=== PATIENT | female | born 1995 | race Caucasian/White ===

== ENCOUNTER 2018-04-22 17:10 | Observation (INO) | END 2018-04-24 13:00 | disposition home or self-care (01) ==

== ENCOUNTER 2018-10-25 08:26 | Day surgery (SDC) | payer BC ==
[2018-10-25] VITALS (11 sets, daily range): BP systolic 112–126; BP diastolic 49–72; PULSE 64–90; RESP 16–18; Ht 167.6 cm; Wt 102.9 kg
[~2018-10-25] VITALS: Ht 167.6 cm; Wt 102.9 kg
--- NOTE | 2018-10-25 08:03 | HPN ---
Date/Time of Note Date/Time of Note DATE: 10/25/18 TIME: 08:03 Interval H&P Admission Note Pt. seen H&P reviewed: No system changes RAYMOND GAY MD Oct 25, 2018 08:03
[~2018-10-25 08:26] MED LIST: ASPI-817 PO; CEFAZOLIN 1 GM INJ ONE; GLYCOPYRROLATE 0.4 MG INJ ONE; LIDOCAINE 2% (SDV) 5 ML INJ ONE; NEOSTIGMINE 3 MG/3 ML SYRINGE ONE; PROPOFOL 200 MG INJ ONE; ROCURONIUM 50 MG INJ ONE; SUCCINYLCHOLINE CHLORIDE 100 MG/5 ML SYG IV ONE
[2018-10-25] MEDS ORDERED: LACTATED RINGER'S 1,000 ML IV SCH (10:00)
--- NOTE | 2018-10-25 11:24 | PREAC ---
Date/Time of Note Date/Time of Note DATE: 10/25/18 TIME: 11:23 Anesthesia Eval and Record Evaluation Time Pre-Procedure Interview DATE: 10/25/18 TIME: 11:23 Age 22 Sex female NPO: 8 hrs Preoperative diagnosis L knee hardware Planned procedure L knee hardware removal Past Medical History Past Medical History: Includes GI: Obesity Surgery & Anesthesia Issues No known issue Meds Anticoagulation: No Beta Анна within 24 hr: No Reason Beta Анна not given: Pt. not on B-Анна Discontinued Scripts Aspirin* (Aspirin* EC) 81 Mg Tablet., 81 MG PO BID for 35 Days, #70 TAB Prov:RAYMOND GAY MD 04/24/18 Current Medications Lactated Ringer's 1,000 ml @ 25 mls/hr Q24H IV ; Start 10/25/18 at 10:00 Meds reviewed: Yes Allergies Coded Allergies: No Known Allergy (Verified , 10/25/18) Allergies Reviewed: Yes Labs/Studies Labs Reviewed: Reviewed by anesthesiologist test: Negative Pre-procedure Exam Last vitals Vital Signs Date Temp Pulse Resp B/P (MAP) Pulse Ox O2 O2 Flow FiO2 Time Delivery Rate 10/25/18 98.5 89 16 125/72 97 Room Air 09:24 (89) Airway: Adequate mouth opening, Adequate thyromental dist Mallampati: Mallampati II Teeth: Normal Lung: Normal Heart: Normal ASA Physical Status ASA physical status: 2 Emergency: None Planned Anesthetic General/MAC: ETT Nerve block: Femoral (left) Pre-operative Attestations Prior to commencing anesthesia and surgery, the patient was re-evaluated, there was verification of: *The patient's identity *The results of appropriate recent lab work and preoperative vital signs *The above evaluation not changing prior to induction *Anesthetic plan, risk benefits, alternative and complications discussed with patient/family; questions answered; patient/family understands, accepts and wishes to proceed. ORION WOMACK Oct 25, 2018 11:24
[2018-10-25] MEDS ORDERED: METOCLOPRAMIDE 10 MG INJ IV PRN (11:30)
[2018-10-25] MEDS ORDERED: DIPHENHYDRAMINE 50 MG INJ IV PRN (11:30)
[2018-10-25] MEDS ORDERED: HYDROmorphONE 1 MG/5 ML IV SYRINGE IV PRN ×3 (11:30)
[2018-10-25] MEDS ORDERED: ALBUTEROL 0.083% (NEB) 2.5 MG/3 ML AMP HHN PRN (11:30)
[2018-10-25] MEDS ORDERED: MEPERIDINE 25 MG INJ IV PRN (11:30)
[2018-10-25] MEDS ORDERED: ONDANSETRON 4 MG INJ IV PRN (11:30)
[2018-10-25] MEDS ORDERED: FENTAnyl 50 MCG/ML VIAL IV PRN ×2 (11:30)
[2018-10-25] MEDS ORDERED: ROPIVACAINE 0.5 % 30 ML VIAL ONE (11:35)
[2018-10-25] MEDS ORDERED: FENTAnyl 50 MCG/ML VIAL ONE (11:35)
[2018-10-25] MEDS ORDERED: morphine 2 MG INJ IV PRN (12:00)
[2018-10-25] MEDS ORDERED: KETOROLAC 30 MG INJ IV SCH (12:00)
[2018-10-25] MEDS ORDERED: POLYMYXIN/BACITRACIN 1L IRRIG IRR ONE (12:22)
[2018-10-25] MEDS ORDERED: PROVENTIL HFA 6.7GM INHALER ONE (13:17)
--- NOTE | 2018-10-25 13:25 | QN ---
Documentation Job number: [id number] RAYMOND GAY MD Oct 25, 2018 13:25
--- NOTE | 2018-10-25 14:48 | OPR ---
DATE OF OPERATION: 10/25/2018 PREOPERATIVE DIAGNOSES: 1. Left knee painful hardware. 2. Left knee hypertrophic scar measuring 12 cm. POSTOPERATIVE DIAGNOSES: 1. Left knee painful hardware. 2. Left knee hypertrophic scar measuring 12 cm. 3. Patellar tendon partial tear. PROCEDURES: 1. Left knee hardware removal. 2. Left knee patellar tendon repair. 3. Left knee hypertrophic scar excision measuring 12 cm. 4. Placement of amniotic membrane. SURGEON: Ha Rothman MD FRUIT AND VEGETABLE INSPECTOR: None. ANESTHESIA: General with adductor block. ANESTHESIOLOGIST: Mio Hastings MD TOURNIQUET TIME: 60 minutes at 250 mmHg. ESTIMATED BLOOD LOSS: Minimal. TRANSFUSIONS: None. SPECIMENS: None. IMPLANTS: Amniotic membrane. CONDITION POSTPROCEDURE: Stable. DISPOSITION: To PACU. INDICATIONS: The patient is a 22-year-old female with ongoing pain over her previous hardware site as well as a painful hypertrophic scar that she has undergone through the previous surgeries. Given the patient's pain and indication, the patient is indicated for surgery. RISK NOTE: The patient understood the risks and benefits of surgery in the patient's [place] language including, but not limited to infection, bleeding, loss of limb, loss of life, need for future surgery. The patient understood these risks and benefits by signing surgical consent form. The patient understood that there is risk of deep vein thrombosis as well. OPERATIVE NOTE: The patient was met in the preoperative holding area and the correct operative extremity was marked and confirmed with both patient and consent. The patient was brought to the operative theater and was given preoperative anesthesia and antibiotics and preoperative regional anesthesia. The patient was prepped and draped in normal sterile fashion. Timeout was taken and all parties in the room agreed this was the correct patient, extremity and procedure. Tourniquet was inflated to 250 mmHg. An incision was made over the previous incision site with excision of the hypertrophic scar measuring 12 cm. This incision was then further incised and scar tissue was debrided and the incision was brought down to the site of the previous screws which were removed without any complication. At that time, I identified was two 3 cm tears in the patella tendon. Wound was irrigated thoroughly. X-ray in AP and Lateral views confirmed that the hardware had been removed. The patella tendon was repaired with 0 PDS. Wounds were irrigated again and then amniotic membrane was laid over the previous hardware site as well as over the patella tendon tear. The wound was then closed in layers in 2- 0 Vicryl followed by 3-0 Monocryl and running 4-0 Monocryl with Prineo Dermabond followed by Mepilex dressing in knee flexion and wrapped in a soft compressive dressing. At the end of the case, all sponge and needle counts were correct. The patient was taken to the PACU in stable condition and toes were warm and well perfused Dictated By: HA WHALEN/ROLDAN Conf#: [id number] DID#: [id number] MTDD
--- NOTE | 2018-10-26 07:45 | PAC ---
Date/Time of Note Date/Time of Note DATE: 10/26/18 TIME: 07:45 Post-Anesthesia Notes Post-Anesthesia Note Last documented vital signs Vital Signs Date Temp Pulse Resp B/P (MAP) Pulse Ox O2 O2 Flow FiO2 Time Delivery Rate 10/25/18 64 18 112/58 96 Room Air 14:10 (76) 10/25/18 98.3 14:09 Activity: WNL Respiratory function: WNL Cardiovascular function: WNL Mental status: Baseline Pain reasonably controlled: Yes Hydration appropriate: Yes Nausea/Vomiting absent: Yes ORION WOMACK Oct 26, 2018 07:45
== END 2018-10-25 15:00 | disposition home or self-care (01) ==
LOC: SDS 08:26
PROVIDERS: ATTEND Orthopaedic Surgery
DX: T84.84XA Pain due to internal orthopedic prosthetic devices, implants and grafts, initial encounter (principal); Y83.9 Surgical procedure, unspecified as the cause of abnormal reaction of the patient, or of later complication, without mention of misadventure at the time of the procedure; L91.0 Hypertrophic scar; S76.112A Strain of left quadriceps muscle, fascia and tendon, initial encounter; X58.XXXA Exposure to other specified factors, initial encounter
CPT/HCPCS: 20680; 27380; 73562; 82306; J0690; J1170; J2405; J2710; J2795; J3010; Z7512; Z7610; 88300; 88304